=== PATIENT | female | born 1940 | race Caucasian/White ===

== ENCOUNTER 2016-06-17 20:23 | Emergency (ER) | payer OTHER, MEDICARE ==
[2016-06-17 20:40] VITALS: BP 161/76; PULSE 69; TEMP 97.5; BMI 19.1
[2016-06-17] MEDS ORDERED: predniSONE 20 MG TABLET (UD) PO ONE (22:28)
[2016-06-17] MEDS ORDERED: predniSONE 20 MG TABLET (UD) ONE (22:31)
--- NOTE | 2016-06-17 22:32 | PDOC ---
[id number] BUG BITES Time Seen by Provider: 06/17/16 20:29 - History of Present Illness Initial Comments: This 75-year-old woman with no significant past medical history presents with 2 apparent insect bites of the left forearm. Patient was visiting [place], returning yesterday. Over the last 2 days, she has noted increase swelling around areas appearing to be insect bites of the volar aspect of the mid left forearm. She states that the areas are mildly itchy and she has been applying [id number] corticosteroid cream to them. She has no previous history of sensitivity to insect toxin. Patient states [place] did [place] see any flying insect. She had no exposure as far she knows to spiders or mosquitoes. She denies difficulty swallowing/difficulty breathing; no lip/tongue edema and no wheezing. No history of poor wound healing or resistant organism colonization/infection Past History - Past Medical History Allergies/Adverse Reactions: Allergies Allergy/AdvReac Type Severity Reaction Status Date / Time No Known Allergies Allergy Verified 06/17/16 20:24 Home Medications: Ambulatory Orders Prednisone [Deltasone -] 20 mg PO DAILY #3 tablet 06/17/16 Other medical history: DENIES - Surgical History Cholecystectomy: Yes - Psycho/Social/Smoking Cessation Hx Anxiety: No Suicidal Ideation: No Smoking History: Never smoked Hx Alcohol Use: No Drug/Substance Use Hx: No Substance Use Type: None Review of Systems - Review of Systems Able to Perform ROS?: Yes Comments:: 12 point review of systems is negative except for what is noted in the history of present illness *Physical Exam - Vital Signs Last Vital Signs Temp Pulse Resp BP Pulse Ox 97.5 F L 69 16 161/76 100 06/17/16 20:23 06/17/16 20:23 06/17/16 20:23 06/17/16 20:23 06/17/16 20:23 - Physical Exam Comments: GENERAL: Adult female, alert and oriented 3, in no acute distress HEAD: Normal with no signs of trauma. EYES: PERRLA, EOMI, sclera anicteric, conjunctiva clear. ENT: Ears normal, nares patent, oropharynx clear without exudates. Dry mucous membranes. NECK: Normal range of motion, supple without lymphadenopathy, JVD, or masses. LUNGS: Breath sounds equal, clear to auscultation bilaterally. No wheezes, and no crackles. HEART:Regular rate and rhythm, normal S1 and S2 without murmur, rub or gallop. ABDOMEN:.normal bowel sounds No guarding,tenderness or rebound.No masses No distention. EXTREMITIES: Normal range of motion, no edema. No clubbing or cyanosis. No erythema, or tenderness. NEUROLOGICAL: Cranial nerves II through XII grossly intact. Normal speech. No focal neurological deficits. MUSCULOSKELETAL: Back non-tender to palpation, no CVA tenderness SKIN: Warm, Dry, normal turgor, 2 nontender papules with erythematous center, each 2 cm diameter,left forearm (volar aspect) No fluctuance/no purulence noted/no lymphangitic streaking Progress Note - Progress Note Progress Note: Clinical presentation most consistent with enhanced local reaction to insect bite. No evidence of anaphylactic reaction or secondary bacterial infection at this point. Patient cautioned to return if swelling/erythema/pain worsens over the next few days, more indicative of of bacterial infection. Otherwise, prednisone 20 mg a day for the next 3 days will be prescribed. *DC/Admit/Observation/Transfer Diagnosis at time of Disposition: Local reaction to insect sting Qualifiers: Encounter type: initial encounter Injury intent: accidental or unintentional Qualified Code(s): T63.481A - Toxic effect of venom of other arthropod, accidental (unintentional), initial encounter - Discharge Dispostion Disposition: HOME Condition at time of disposition: Stable - Prescriptions Prescriptions: Prednisone [Deltasone -] 20 mg PO DAILY #3 tablet - Referrals Referrals: Jase Woody [Primary Care Provider] - 2 Days - Patient Instructions Printed Discharge Instructions: DI for Insect Bites and Stings Additional Instructions: Cool compresses to left arm Prednisone 20 mg daily for the next 3 days (take with food) Can also take Benadryl, 25 mg as needed for itching Follow-up with your doctor within the next 2 days Return here or see your doctor sooner if area becomes redder/more swollen or painful
== END 2016-06-17 22:34 | disposition home or self-care (01) ==
LOC: FER 20:23
DX: T63.481A Toxic effect of venom of other arthropod, accidental (unintentional), initial encounter (principal); Y93.9 Activity, unspecified; Y92.9 Unspecified place or not applicable
CPT/HCPCS: 99282-25